=== PATIENT | female | born 1975 | race Hispanic/Latino ===

== ENCOUNTER → 2017-11-17 | Outpatient (CLI) | payer OTHER | END | disposition home or self-care (01) | LOC: DTH 08:36 | PROVIDERS: ATTEND Surgery | DX: E11.9 Type 2 diabetes mellitus without complications (principal); E66.09 Other obesity due to excess calories; I10 Essential (primary) hypertension | CPT/HCPCS: 97803 ==

== ENCOUNTER → 2017-12-01 | Outpatient (CLI) | payer OTHER, SELFPAY | END | disposition home or self-care (01) | LOC: DTH 09:17 | PROVIDERS: ATTEND Surgery | DX: E11.9 Type 2 diabetes mellitus without complications (principal); E66.09 Other obesity due to excess calories | CPT/HCPCS: 97803 ==

== ENCOUNTER → 2018-01-19 | Outpatient (CLI) | payer OTHER | END | disposition home or self-care (01) | LOC: DTH 09:33 | PROVIDERS: ATTEND Surgery | DX: E11.9 Type 2 diabetes mellitus without complications (principal); E66.09 Other obesity due to excess calories | CPT/HCPCS: 97803 ==

== ENCOUNTER → 2018-02-09 | Outpatient (CLI) | payer OTHER | END | disposition home or self-care (01) | LOC: DTH 09:40 | PROVIDERS: ATTEND Surgery | DX: E66.01 Morbid (severe) obesity due to excess calories (principal); E11.9 Type 2 diabetes mellitus without complications | CPT/HCPCS: 97803 ==

== ENCOUNTER → 2018-03-10 | Outpatient (CLI) | payer OTHER ==
[~2018-03-10] MED LIST: AMLO5TAB9 PO; METF-444 PO; MONT10TA24 PO; TRAZ-187 PO
--- NOTE | 2018-03-10 12:53 | NUR ---
Bariatric pre-op diet education: RODRIGO provided pt with printed materials on Nutrition Guidelines for Bariatric Surgery. Diet education reviewed in detail. Pt with multiple questions on diet, all questions answered by RODRIGO. RODRIGO's contact information has been provided to pt for additional nutrition questions or concerns she may. Addendum: 03/10/18 at [address] Amended: Links added.
== END | disposition home or self-care (01) ==
LOC: DTH 09:23
PROVIDERS: ATTEND Surgery
DX: E66.09 Other obesity due to excess calories (principal); E11.9 Type 2 diabetes mellitus without complications
CPT/HCPCS: 97803

== ENCOUNTER 2018-03-11 10:05 | Day surgery (SDC) | payer OTHER ==
[~2018-03-11] VITALS: Ht 165.1 cm; Wt 145.6 kg
[~2018-03-11 10:05] MED LIST changes: -AMLO5TAB9 PO; -METF-444 PO; -MONT10TA24 PO; +SODIUM CHLORIDE 0.9% 1000ML 1,000 ML IV ONE; -TRAZ-187 PO
[2018-03-11] MEDS ORDERED: PROPOFOL 10 MG/ML 20ML VIAL IV ONE ×2 (10:58)
[2018-03-11 11:01] VITALS: BP 167/97
[2018-03-11 11:06] VITALS: BP 128/78
[2018-03-11] MEDS ORDERED: MONT10TA24 PO (11:08)
[2018-03-11] MEDS ORDERED: METF-444 PO (11:08)
[2018-03-11] MEDS ORDERED: AMLO5TAB9 PO (11:08)
[2018-03-11] MEDS ORDERED: TRAZ-187 PO (11:08)
[2018-03-11 11:11] VITALS: BP 144/79
[2018-03-11 11:16] VITALS: BP 114/84
== END 2018-03-11 11:35 | disposition home or self-care (01) ==
LOC: DAH 10:05
PROVIDERS: ATTEND Surgery
DX: K21.9 Gastro-esophageal reflux disease without esophagitis (principal); Z98.890 Other specified postprocedural states; Z79.899 Other long term (current) drug therapy; Z82.49 Family history of ischemic heart disease and other diseases of the circulatory system; Z68.44 Body mass index [BMI] 60.0-69.9, adult; E11.9 Type 2 diabetes mellitus without complications
CPT/HCPCS: 43235; A4606; J2704 ×2; J7030; 93005

== ENCOUNTER → 2020-03-29 | Outpatient (CLI) | payer OTHER ==
[~2020-03-29] MED LIST changes: +AMLO-257 PO; +METF-444 PO; +MONT10TA32 PO; -SODIUM CHLORIDE 0.9% 1000ML 1,000 ML IV ONE; +TRAZ-187 PO
== END | disposition home or self-care (01) ==
LOC: RAH 10:45
PROVIDERS: ATTEND Family Medicine
DX: Z12.31 Encounter for screening mammogram for malignant neoplasm of breast (principal)
CPT/HCPCS: 77067

== ENCOUNTER → 2022-09-04 | Outpatient (CLI) | payer OTHER ==
[~2022-09-04] MED LIST changes: +MONT-39 PO; -MONT10TA32 PO
== END | disposition home or self-care (01) ==
LOC: RAH 11:12
PROVIDERS: ATTEND Family Medicine
DX: Z12.31 Encounter for screening mammogram for malignant neoplasm of breast (principal)
CPT/HCPCS: 77063; 77067

== ENCOUNTER 2023-11-25 10:48 | Emergency (ER) | payer OTHER ==
[~2023-11-25] VITALS: Ht 167.6 cm; Wt 79.4 kg
[2023-11-25] MEDS: HYDROcodone/APAP 5/325 1 TAB TABLET PO ONE (11:40)
[2023-11-25] MEDS ORDERED: IBUP-2077 PO (12:38)
[2023-11-25 13:01] VITALS: BP 138/74; PULSE 62; RESP 18; TEMP 98.2; O2SAT 100
== END 2023-11-25 13:08 | disposition home or self-care (01) ==
LOC: EDH 10:48
DX: S00.33XA Contusion of nose, initial encounter (principal); R04.0 Epistaxis; Z79.899 Other long term (current) drug therapy; Z79.84 Long term (current) use of oral hypoglycemic drugs; Z98.890 Other specified postprocedural states; Y04.2XXA Assault by strike against or bumped into by another person, initial encounter; Y93.89 Activity, other specified; Y92.128 Other place in nursing home as the place of occurrence of the external cause; Y99.0 Civilian activity done for income or pay
CPT/HCPCS: 70160